=== PATIENT | male | born 1955 | race Caucasian/White ===

== ENCOUNTER → 2021-06-12 09:45 | Outpatient (CLI) | payer OTHER, SELFPAY ==
--- NOTE | ~2021-06-12 | MR_ITS ---
EXAMINATION: MR knee LT wo con DATE: 06/12/2021 10:33 INDICATION: Medial left knee pain TECHNIQUE: Magnetic resonance imaging (MRI) of the left knee was performed without intravenous contra st. Sequences included axial PD-weighted FS FSE, coronal PD-weighted FSE and PD-weighted FS FSE, sagi ttal PD-weighted FSE, and sagittal T2-weighted FS FSE. COMPARISON: None. FINDINGS: Medial compartment: Mild thinning of cartilage in the tibial surface. Vertically oriented tear through the posterior horn and body of the medial meniscus, in a parrot beak configuration, with intermediate signal within the tear. Mild osteophytosis. Lateral compartment: Cartilage and meniscus intact. Mild osteophytosis. Patellofemoral compartment: Partial-thickness defect and subchondral cyst formation at the superior aspect of the median ridge. M ild osteophytosis. Extensor mechanism and retinacula are intact. Ligaments and tendons: ACL, PCL, LCL, and MCL are intact. Fluid: Small volume joint fluid. Osseous/other: Marrow signal is benign and homogenous. IMPRESSION: 1. Parrot beak type tear of the body/posterior horn of the medial meniscus, with evidence of interval healing changes versus surgical change if previously repaired. Reviewed, dictated and finalized at location K. IMPRESSION: 1. Parrot beak type tear of the body/posterior horn of the medial meniscus, wit h evidence of interval healing changes versus surgical change if previously rep aired.
== END ==
PROVIDERS: PCP Family Medicine
DX: S83.242A Other tear of medial meniscus, current injury, left knee, initial encounter (principal); X58.XXXA Exposure to other specified factors, initial encounter
CPT/HCPCS: 73721

== ENCOUNTER → 2021-08-02 08:17 | Outpatient (CLI) | payer OTHER, SELFPAY ==
--- NOTE | ~2021-08-02 | CT_ITS ---
EXAMINATION: CTA chest DATE: 08/02/2021 09:00 INDICATION: Aortic root dilatation TECHNIQUE: Computed tomographic angiography (CTA) of the chest was performed with 100 mL Omnipque-300 intravenous contrast. Maximum intensity projection 3D-reconstructions of the aorta and other arterie s were constructed by the technologist on a separate workstation. The dose-length product (DLP) was 6 44.54 mGy-cm. Automated exposure control and iterative reconstruction technique were employed. COMPARISON: None. FINDINGS: There is mild dependent atelectasis. The lungs are free of focal airspace opacities. No ple ural effusion or pneumothorax seen. The ascending aorta measures 3.5 cm at the sinuses of Valsalva an d 3.6 cm at the level of the main pulmonary artery. There is no dissection. No pathologically enlarge d thoracic lymph nodes are identified. The heart size is normal. A small sliding hiatal hernia is not ed. There is moderate thoracic spondylosis. IMPRESSION: 1. Thoracic aorta measuring up to 3.6 cm. No dissection. Reviewed, dictated and finalized at location A.
[2021-08-02 08:46] LABS: Estimated Glomerular Filt Rate > 60
== END ==
PROVIDERS: PCP Family Medicine; Visit Provider Family Medicine
DX: I77.810 Thoracic aortic ectasia (principal)
CPT/HCPCS: 71275; Q9967